=== PATIENT | female | born 1995 | race Caucasian/White ===

== ENCOUNTER 2016-07-14 00:27 | Emergency (ER) | payer OTHER ==
[~2016-07-14] VITALS: Ht 160 cm; Wt 68.4 kg
[~2016-07-14 00:27] MED LIST: ACET500C5 PO; CEPH-443 PO; CIPR500T4 PO; HYDR-3498 PO
[2016-07-14 00:30] VITALS: Ht 160 cm; Wt 68.4 kg
[2016-07-14 03:32] LABS: URINE BLOOD (Dip) POC 3+ (NEGATIVE)
[2016-07-14] MEDS ORDERED: PHEN-537 PO (03:37)
[2016-07-14] MEDS ORDERED: NITR-58 PO (03:37)
--- NOTE | 2016-07-14 03:41 | ERD ---
ER Documentation Chief Complaint Date/Time DATE: 07/14/16 TIME: 03:38 Chief Complaint blood in urine for past day HPI 20-year-old female complaining of dysuria and hematuria 1 day. She also has urinary frequency and urgency and epigastric pain. Patient stated that she has urinary tract infections in the past, last episode was about 4 month ago. She took Cipro at that time. Her LMP was 07/04/2016. Denies flank pain. Denies fever or chills. Denies vaginal discharge. ROS All systems reviewed and are negative except as per history of present illness. Medications Home Meds Active Scripts Phenazopyridine Hcl* (Pyridium*) 100 Mg Tab, 100 MG PO TID Y for URINARY PAIN, # 6 TAB Prov:CLARITZA CONLEY. INSTRUMENT REPAIRER 07/14/16 Nitrofurantoin Monohyd Macrocr* (Macrobid*) 100 Mg Capsr, 100 MG PO BID for 7 Days, CAP Prov:CLARITZA CONLEY. INSTRUMENT REPAIRER 07/14/16 Acetaminophen* (Tylophen*) 500 Mg Capsule, 1 CAP PO Q6H Y for PAIN AND OR ELEVATED TEMP, #20 CAP Prov:CLARITZA CONLEY. INSTRUMENT REPAIRER 12/11/15 Cephalexin* (Keflex*) 500 Mg Capsule, 500 MG PO QID for 5 Days, CAP Prov:CLARITZA CONLEY. INSTRUMENT REPAIRER 12/11/15 Hydrocodone Bit-Acetaminophen* ([place]*) 5-325 Mg Tab, 1 TAB PO Q6 Y for PAIN, # 7 TAB Prov:RYAN RIOS PA-C 12/09/15 Ciprofloxacin Hcl* (Ciprofloxacin Hcl*) 500 Mg Tablet, 500 MG PO BID for 14 Days , TAB Prov:RYAN RIOS PA-C 12/09/15 Allergies Allergies: Coded Allergies: No Known Allergy (Unverified , 07/27/15) PMhx/Soc History of Surgery: No Anesthesia Reaction: No Hx Neurological Disorder: No Hx Respiratory Disorders: Yes (asthma) Hx Cardiac Disorders: No Hx Psychiatric Problems: No Hx Miscellaneous Medical Probl: Yes (anemia) Hx Alcohol Use: Yes (social) Hx Substance Use: No Hx Tobacco Use: No Smoking Status: Never smoker Physical Exam Vitals Vital Signs Date Time Temp Pulse Resp B/P Pulse Ox O2 Delivery O2 Flow Rate FiO2 07/14/16 00:30 98.3 65 18 115/69 99 Physical Exam General impression: Well-developed, well-nourished. Alert, oriented, in no acute distress Head: Normocephalic, atraumatic. Respiration: Normal respiratory effort. Lungs clear to auscultate bilaterally. No wheezes, rales or rhonchi. Cardiovascular: Regular rate and rhythm. No murmurs or extra heart sounds. Abdomen: Abdomen normal to inspection. Suprapubic. No masses or organomegaly. Bowel sounds normal. Back: Normal to inspection. No midline spine tenderness. No CVA tenderness. Neuro: Mental status normal, speech normal. TAPERING MACHINE OPERATOR grossly intact. Skin: Normal turgor. No rash or lesions. Psych: Normal mood and affect. Results 24 hrs Laboratory Tests Test 07/14/16 03:34 Bedside Urine Blood 3+ Bedside Urine Glucose (UA) Negative Bedside Urine Ketones (LAB) Negative Bedside Urine Leukocyte Esterase (L 2+ Bedside Urine Nitrite (LAB) Negative Bedside Urine Protein (LAB) 1+ Bedside Urine pH (LAB) 6.0 Procedures/MDM Well-appearing 20-year-old female presented to ED with dysuria, hematuria, urinary frequency and urgency. Her urine dip showed 2+ leukocyte, negative nitrite, 1+ protein, and 3+ blood. Patient symptoms and UA findings are consistent with urinary tract infection. Low suspicion for pyelonephritis or sexually transmitted infection. Urine test negative. Patient appears well, stable for discharge and outpatient management. Medical decision making shared with patient and family. Education provided to patient and family. Patient and family expressed understanding of the plan. Medications on discharge: Macrobid, Pyridium. Follow-up: Primary care provider in 2-3 days or return to ED if worse. Departure Diagnosis: Primary Impression: UTI (urinary tract infection) Urinary tract infection type: acute cystitis Hematuria presence: with hematuria Qualified Code: N30.01 - Acute cystitis with hematuria Condition: Good Patient Instructions: Understanding Urinary Tract Infections (UTIs) Referrals: LORRIE GARVIN (PCP) Additional Instructions: Call your primary care doctor TOMORROW for an appointment during the next 2-3 days.See the doctor sooner or return here if your condition worsens before your appointment time. CLARITZA CONLEY NP Jul 14, 2016 03:41
[2016-07-14 03:43] VITALS: BP 128/81; PULSE 62; RESP 16
== END 2016-07-14 03:48 | disposition home or self-care (01) ==
LOC: FTE 00:27
DX: N30.01 Acute cystitis with hematuria (principal); J45.909 Unspecified asthma, uncomplicated
CPT/HCPCS: 81003; Z7502; 99283

== ENCOUNTER 2016-08-26 15:15 | Emergency (ER) | payer OTHER ==
[~2016-08-26] VITALS: Ht 157.5 cm; Wt 86.5 kg
[~2016-08-26 15:15] MED LIST changes: +NITR-58 PO; +PHEN-537 PO
[2016-08-26 15:33] VITALS: Ht 157.5 cm; Wt 86.5 kg
[2016-08-26 17:11] LABS: URINE BLOOD (Dip) POC 2+ (NEGATIVE)
[2016-08-26] MEDS ORDERED: PHEN-537 PO (18:48)
[2016-08-26] MEDS ORDERED: NITR-58 PO (18:48)
[2016-08-26 19:01] VITALS: BP 122/71; PULSE 66; RESP 18; TEMP 97.9
--- NOTE | 2016-08-26 22:04 | ERA ---
ER Documentation Chief Complaint Date/Time DATE: 08/26/16 TIME: 22:00 Chief Complaint LOWER ABDOMINAL PAIN WITH BURNING UPON URINATION SINCE THIS MORNING HPI Patient is a 21-year-old female presenting for blood in her urine. Symptoms started approximately 3 days ago. Patient's last period was August 15. Patient also complains of dysuria. Patient denies any dyspareunia, vaginal discharge, foul odor or fever. ROS All systems reviewed and are negative except as per history of present illness. Medications Home Meds Active Scripts Nitrofurantoin Monohyd Macrocr* (Macrobid*) 100 Mg Capsr, 100 MG PO HS for 7 Days, CAP Prov:MEGHANN SALMERON PA-C 08/26/16 Phenazopyridine Hcl* (Pyridium*) 100 Mg Tab, 100 MG PO TID Y for URINARY PAIN, # 8 TAB Prov:MEGHANN SALMERON PA-C 08/26/16 Phenazopyridine Hcl* (Pyridium*) 100 Mg Tab, 100 MG PO TID Y for URINARY PAIN, # 6 TAB Prov:CLARITZA CONLEY. SENIOR PL SQL DEVELOPER 07/14/16 Nitrofurantoin Monohyd Macrocr* (Macrobid*) 100 Mg Capsr, 100 MG PO BID for 7 Days, CAP Prov:CLARITZA CONLEY. SENIOR PL SQL DEVELOPER 07/14/16 Acetaminophen* (Tylophen*) 500 Mg Capsule, 1 CAP PO Q6H Y for PAIN AND OR ELEVATED TEMP, #20 CAP Prov:CLARITZA CONLEY. SENIOR PL SQL DEVELOPER 12/11/15 Cephalexin* (Keflex*) 500 Mg Capsule, 500 MG PO QID for 5 Days, CAP Prov:CLARITZA COLNEY. SENIOR PL SQL DEVELOPER 12/11/15 Hydrocodone Bit-Acetaminophen* ([place]*) 5-325 Mg Tab, 1 TAB PO Q6 Y for PAIN, # 7 TAB Prov:RYAN RIOS PA-C 12/09/15 Ciprofloxacin Hcl* (Ciprofloxacin Hcl*) 500 Mg Tablet, 500 MG PO BID for 14 Days , TAB Prov:RYAN RIOS PA-C 12/09/15 Allergies Allergies: Coded Allergies: No Known Allergy (Unverified , 07/27/15) PMhx/Soc History of Surgery: No Anesthesia Reaction: No Hx Neurological Disorder: No Hx Respiratory Disorders: Yes (asthma) Hx Cardiac Disorders: No Hx Psychiatric Problems: No Hx Miscellaneous Medical Probl: Yes (anemia) Hx Alcohol Use: Yes (social) Hx Substance Use: No Hx Tobacco Use: No Physical Exam Vitals Vital Signs Date Time Temp Pulse Resp B/P Pulse Ox O2 Delivery O2 Flow Rate FiO2 08/26/16 19:01 97.9 66 18 122/71 98 Room Air 08/26/16 15:33 97.9 69 18 120/73 98 Physical Exam Const: Obese 21-year-old female Head: Atraumatic Eyes: Normal Conjunctiva ENT: Normal External Ears, Nose and Mouth. Neck: Full range of motion..~ No meningismus. Resp: Clear to auscultation bilaterally Cardio: Regular rate and rhythm, no murmurs Abd: Soft, non tender, non distended. Normal bowel sounds. Positive suprapubic tenderness Skin: No petechiae or rashes Back: No midline or flank tenderness Ext: No cyanosis, or edema Neur: Awake and alert Psych: Normal Mood and Affect Results 24 hrs Laboratory Tests Test 08/26/16 17:10 Bedside Urine pH (LAB) 5.5 Bedside Urine Protein (LAB) 2+ Bedside Urine Glucose (UA) 0.1% Bedside Urine Ketones (LAB) Trace Bedside Urine Blood 2+ Bedside Urine Nitrite (LAB) Positive Bedside Urine Leukocyte Esterase (L 1+ Procedures/MDM Patient is a 21-year-old female presenting complaining of blood in her urine and dysuria. Patient denies any vaginal discharge, foul odor, or dyspareunia. Patient is not sexually active at this time. Patient's test was negative. Urinalysis was positive for nitrites. There is no CVA tenderness at this time I do not suspect pyelonephritis. Patient is able to tolerate p.o. and I do not suspect any GI involvement at this time. Patient denies any fever. Will treat for hemorrhagic cystitis with nitrofurantoin and phenothiazine for dysuria relief. Departure Diagnosis: Primary Impression: Hemorrhagic cystitis Condition: Stable Patient Instructions: MEGHANN Herzog PA-C Aug 26, 2016 22:04
== END 2016-08-26 18:49 | disposition home or self-care (01) ==
LOC: FTE 15:15
DX: N30.90 Cystitis, unspecified without hematuria (principal); J45.909 Unspecified asthma, uncomplicated
CPT/HCPCS: 81003; Z7502; 99283